=== PATIENT | female | born 1975 | race Caucasian/White ===

== ENCOUNTER → 2018-05-12 | Outpatient (CLI) | payer OTHER, MEDICAID | LOC: CIMAGING 10:08 | PROVIDERS: ATTEND Internal Medicine | DX: M54.9 Dorsalgia, unspecified (principal); R31.9 Hematuria, unspecified; N28.1 Cyst of kidney, acquired | CPT/HCPCS: 74176-PO ==

== ENCOUNTER → 2018-08-24 | Outpatient (CLI) | payer OTHER, MEDICAID ==
[~2018-08-24] MED LIST: IOPAMIDOL (ISOVUE 370) 100 ML BTL IV ONE
== END ==
LOC: CIMAGING 09:57
PROVIDERS: ATTEND Internal Medicine
DX: R91.1 Solitary pulmonary nodule (principal)
CPT/HCPCS: 71260; Q9967